=== PATIENT | male | born 1990 | race Caucasian/White ===

== ENCOUNTER → 2021-06-19 | Day surgery (SDC) | payer OTHER ==
[~2021-06-19] VITALS: Ht 180.3 cm; Wt 68.0 kg
[~2021-06-19] MED LIST: "\\\"ANTIBIOTIC\\\""; MOTRIN600 MG PO
[2021-06-19 08:56] LABS: BASOPHIL 1.3 % (0-2); HCT 48.9 % (42.0-52.0); HGB 16.9 g/dl (13.2-18.0); LYMPHOCYTE 22.4 % (15-48); MCH 31.1 pg (25.0-31.0); MCHC 34.6 g/dL (32.0-36.0); MCV 89.9 fL (78.0-100.0); MONOCYTE 12.5 % (0-12); MPV 10.1 fL (6.0-9.5); NEUTROPHIL 58.5 % (41-80); NRBC 0; PLT 215 K/uL (150-400); RBC 5.44 M/uL (4.70-6.00); WBC 10.7 K/uL (4.0-10.5)
== END | disposition home or self-care (01) ==
LOC: FAS 07:48
PROVIDERS: Oral & Maxillofacial Surgery
DX: K04.7 Periapical abscess without sinus (principal); K04.8 Radicular cyst; K08.89 Other specified disorders of teeth and supporting structures
CPT/HCPCS: D7140; D7210; 36415; 85025; J1100; J1170; J2250; J2405; J2704; J3010; J7120